=== PATIENT | male | born 1990 | race Two or more races ===

== ENCOUNTER 2021-12-10 08:12 | Inpatient (IN) ==
[2021-12-10] MEDS ORDERED: IBUPROFEN 800 MG TAB PO STA (08:29)
[2021-12-10] MEDS ORDERED: ACETAMINOPHEN 500 MG TAB PO STA (08:29)
[2021-12-10] MEDS ORDERED: SODIUM CHLORIDE 0.9% 1000ML 2,000 ML IV ONE (08:29)
--- NOTE | 2021-12-10 08:33 | Emergency Department Note ---
Impression & Plan Myocarditis, Elevated troponin, Hyponatremia ED Provider Note Name: ED HAM Age: 31 Sex: M Arrives Via: Walk-In Informant: Patient, mother ED Provider: Jose M Monaco MD Chief Complaint: Illness Impression: As per impressions above Medical Decision Making: Pleasant 31-year-old male without significant past medical history arrives for evaluation of flu/COVID-like illness over the last week. Worsening dizziness and lightheadedness. Initial EKG a bit concerning with Q waves noted though no specific ST elevation. But febrile and tachycardia on arrival was given IV fluids, Tylenol, Motrin. Initial chest x-ray unremarkable. Initial COVID test ing negative. His labs started returning with significantly elevated troponin at 4000, hyponatremia. At this point base loader was consulted emergently. Patient had an emergent echo done. Following this base loader felt it was reasonable to bring him in to this facility for monitoring and further management. While this was being done further testing was obtained such as Lyme which is negative, CRP/ESR which are both elevated, CK which was elevated patient did receive some further fluids. Patient's initial lactate and procalcitonin are unremarkable. I do not feel this is a bacterial sepsis causing this. Most likely this is consistent with a viral etiology thus we will hold on antibiotics at this time. This was the discussed with hospitalist for further management. Prior Medical Record and Triage/Nursing Notes reviewed by Me Additional history obtained from mother Differentials:Viral syndrome, otitis, pharyngitis, pneumonia, influenza, men ingitis, urinary tract infection, sepsis, bacteremia, as well as other pathologies. Vital Signs: reviewed and remarkable for fever, tachy Interventions: Saline bolus 2 L IV, Tylenol p.o., Motrin p.o. Labs:Reviewed and remarkable for elevated troponin, elevated CK, elevated ESR/CRP, hyponatremia Imagin view chest x-ray no acute findings as per radiologist EKG:Per My Interpretation: Indication Chest pain: NSR 91 bpm, qtc 430. No Ectopy. No Ischemia. No previous for comparison Cardiac/Tele Monitoring: Cardiac Monitoring: An Order was placed for continuous cardiac monitoring. The monitor shows a rate of 90 with a normal sinus rhythm. Consults:Dr Fernando [facility]. [facility] Hospitalist Plan: Disposition:Hospitalization. Condition: Good History of Present Illness:31-year-old male arrives for evaluation of illness. Patient has been ill for the last 5 days. He notes primarily body aches. His associated with diffuse chest tightness/pain, headaches, sore joints, backaches, lack of appetite, lightheadedness, dizziness with exertion, fatigue, sore throat and chills. He has not measured his temperature but does feel feverish and sweaty at times. No known sick contacts but notes he works at [employer] were people may be sick. He used Motrin yesterday with mild improvement. Exertion makes worse and rest makes better. Previously had COVID about 6 months ago. Denies any syncope, neurodeficits, shortness of breath, cough, abdominal pain, vomiting, urinary/bowel symptoms, leg swelling, rashes nor other signs or symptoms. ROS: See above HPI for pertinent positives & negatives. A total of 10 systems reviewed and were otherwise negative. Past Medical History:None Past Surgical History:Jaw surgery Family History:Healthy Social History:Works at [employer], no smoking/drug use, occasional alcohol use Home Medications:No daily medications Allergies:No known drug allergies Vitals:Blood Pressure: 111/76, Pulse 100, RR 18, T 37.9 C, O2 100% on RA Physical Exam: GENERAL: Patient is dehydrated and tired appearing and in minimal distress. Warm to touch EYES: No scleral icterus, unremarkable pupils. ENT: Mucous membranes dry, no nasal congestion. NECK: No masses appreciated, nomeningismus, trachea is midline. RESPIRATORY: No dyspnea. Clear to auscultation and equal bilaterally. No wheeze, no rhonchi. CARDIOVASCULAR: Tachy.No murmurs, rubs, gallops appreciated. GASTROINTESTINAL: Abdomen soft, non-tender, no peritonitis.Bowel sounds positi ve.No masses appreciated. BACK: No midline tenderness, no CVA tenderness EXTREMITIES: Normal motion all extremities, no cyanosis, no edema. NEUROLOGIC: Alert and oriented, no acute motor or sensory deficits, no focal weakness, cranial nerves grossly intact. SKIN: No rash, no jaundice, no diaphoresis. PSYCH: Appropriate GCS: 15 ED Course: Times/Reassessments: Does appear much more comfortable and feeling better after fluids and antipyretics. Agreeable to hospitalization. Jose M Monaco MD Past Med/Surg History Family History (Updated 12/10/21 @ 13:51 by Terrell Oropeza MD) Mother Hypertension Father Diabetes Social History Smoking Status: Never smoker Hx Alcohol Use: No Hx Substance Use: No Preferred Language: Romanian Communication Ability: Effective Lead Oracle Developer Required: No Beliefs That Will Affect Care: None Current Living Situation: Family Other Information That Helps Us Care for You: No Feels Safe at Home: Yes Assistive Devices: None Allergies Allergies Allergy/AdvReac Type Severity Reaction Status Date / Time No Known Allergies Allergy Verified 12/10/21 13:30 Results & Data (ED) Vital Signs Vital Signs - 24 hr 12/10/21 08:16 12/10/21 08:49 12/10/21 09:00 Temperature 37.9 C H Temperature Source Temporal Artery Scan Pulse Rate 100 H 88 Pulse Rate from SpO2 Sensor Respiratory Rate 18 20 Blood Pressure 111/76 Blood Pressure Mean 87 Pulse Oximetry 100 Oxygen Delivery Method Room Air Room Air Sepsis Recent Fever Within 48 Hours Yes Sepsis New/Unexplained Change in Mental Status No Sepsis Action Taken by Nursing No Action Required 12/10/21 09:43 12/10/21 10:00 12/10/21 10:30 Temperature Temperature Source Pulse Rate 92 H 96 H Pulse Rate from SpO2 Sensor 92 H 99 H Respiratory Rate 22 26 H Blood Pressure 118/86 115/85 118/84 Blood Pressure Mean 96 95 95 Pulse Oximetry 99 98 Oxygen Delivery Method Sepsis Recent Fever Within 48 Hours Sepsis New/Unexplained Change in Mental Status Sepsis Action Taken by Nursing 12/10/21 10:30 12/10/21 11:00 12/10/21 11:00 Temperature Temperature Source Pulse Rate 96 H 89 Pulse Rate from SpO2 Sensor 95 H Respiratory Rate 18 Blood Pressure 114/83 Blood Pressure Mean 93 Pulse Oximetry 99 Oxygen Delivery Method Room Air Sepsis Recent Fever Within 48 Hours Sepsis New/Unexplained Change in Mental Status Sepsis Action Taken by Nursing 12/10/21 11:30 12/10/21 11:30 12/10/21 12:00 Temperature Temperature Source Pulse Rate 90 96 H Pulse Rate from SpO2 Sensor 90 98 H Respiratory Rate 15 18 Blood Pressure 128/87 Blood Pressure Mean 100 Pulse Oximetry 98 98 Oxygen Delivery Method Room Air Room Air Sepsis Recent Fever Within 48 Hours Sepsis New/Unexplained Change in Mental Status Sepsis Action Taken by Nursing 12/10/21 12:30 12/10/21 12:30 Temperature Temperature Source Pulse Rate 90 Pulse Rate from SpO2 Sensor Respiratory Rate 17 Blood Pressure 129/87 Blood Pressure Mean 101 Pulse Oximetry Oxygen Delivery Method Sepsis Recent Fever Within 48 Hours Sepsis New/Unexplained Change in Mental Status Sepsis Action Taken by Nursing Laboratory Data Result diagrams: 12/10/21 08:45 12/10/21 18:41 Lab Results 12/10/21 12/10/21 12/10/21 Range/Units 08:45 08:45 09:00 WBC 6.33 (4.8-10.8) K/ul RBC 4.63 (4.63-6.08) M/uL Hgb 12.4 L (14.0-18.0) g/dl Hct 37.1 L (40.1-51.0) % MCV 80.1 (80.0-100.0) fL MCH 26.8 (25.0-34.0) pg MCHC 33.4 (32.0-36.0) g/dL RDW Std Deviation 39.6 (36.4-46.3) fL RDW Coeff of Kieran 13.6 (11.5-14.5) % Plt Count 188 (130-400) K/uL MPV 10.8 (9.4-12.4) fL Immature Gran % (Auto) 0.5 % Neut % (Auto) 72.2 % Lymph % (Auto) 18.3 % Charles % (Auto) 8.7 % Eos % (Auto) 0.0 % Baso % (Auto) 0.3 % Neut # (Auto) 4.57 (1.4-6.5) K/uL Lymph # (Auto) 1.16 L (1.2-3.4) K/uL Charles # (Auto) 0.55 (0.24-0.82) K/uL Eos # (Auto) 0.00 (0-0.50) K/uL Baso # (Auto) 0.02 (0-0.2) K/uL Immature Gran # (Auto) 0.03 H (0.00-0.02) K/uL ESR (0-15) mm/hr Sodium 129 L (136-145) mmol/L Potassium 3.2 L (3.5-5.1) mmol/L Chloride 96 L (98-107) mmol/L Carbon Dioxide 20 L (21-32) mmol/L Anion Gap 13 H (3-11) BUN 16 (6-23) mg/dl Creatinine 1.27 (0.6-1.4) mg/dl Est Cr Clr Drug Dosing Not Reportable Est GFR ( Amer) 85.5 ml/min Est GFR (Non-Af Amer) 73.7 ml/min BUN/Creatinine Ratio 12.6 (10-20) Glucose 132 H (70-99(Fasting)) mg/dl Lactate (0.4-2.0) mmol/L Calcium 8.5 (8.5-10.1) mg/dl Total Bilirubin 1.0 (0.2-1.0) mg/dl Direct Bilirubin 0.3 H (0-0.2) mg/dl AST 40 H (13-39) U/L ALT 16 (7-52) U/L Alkaline Phosphatase 85 (34-104) U/L Total Creatine Kinase (30-223) U/L Troponin I High Sens 4264.6 H* (0-20) pg/ml C-Reactive Protein (0-0.5) mg/dl B-Natriuretic Peptide (0-100) pg/ml Total Protein 7.5 (6.0-8.3) gm/dl Albumin 3.9 (3.4-5.0) gm/dl Procalcitonin (0-0.5) ng/ml TSH (0.300-4.500) uIu/ml Lyme Disease IgG Ab (Negative) Lyme Disease IgM Ab (Negative) SARS-CoV-2 (PCR) NEGATIVE (Negative) Influenza Type A (PCR) Negative (Neg) Influenza Type B (PCR) Negative (Neg) RSV (RT-PCR) Negative (Neg) Group A Strep (PCR) (NotDetected) 12/10/21 12/10/21 12/10/21 Range/Units 10:23 10:45 10:45 WBC (4.8-10.8) K/ul RBC (4.63-6.08) M/uL Hgb (14.0-18.0) g/dl Hct (40.1-51.0) % MCV (80.0-100.0) fL MCH (25.0-34.0) pg MCHC (32.0-36.0) g/dL RDW Std Deviation (36.4-46.3) fL RDW Coeff of Kieran (11.5-14.5) % Plt Count (130-400) K/uL MPV (9.4-12.4) fL Immature Gran % (Auto) % Neut % (Auto) % Lymph % (Auto) % Charles % (Auto) % Eos % (Auto) % Baso % (Auto) % Neut # (Auto) (1.4-6.5) K/uL Lymph # (Auto) (1.2-3.4) K/uL Charles # (Auto) (0.24-0.82) K/uL Eos # (Auto) (0-0.50) K/uL Baso # (Auto) (0-0.2) K/uL Immature Gran # (Auto) (0.00-0.02) K/uL ESR (0-15) mm/hr Sodium (136-145) mmol/L Potassium (3.5-5.1) mmol/L Chloride (98-107) mmol/L Carbon Dioxide (21-32) mmol/L Anion Gap (3-11) BUN (6-23) mg/dl Creatinine (0.6-1.4) mg/dl Est Cr Clr Drug Dosing Est GFR ( Amer) ml/min Est GFR (Non-Af Amer) ml/min BUN/Creatinine Ratio (10-20) Glucose (70-99(Fasting)) mg/dl Lactate (0.4-2.0) mmol/L Calcium (8.5-10.1) mg/dl Total Bilirubin (0.2-1.0) mg/dl Direct Bilirubin (0-0.2) mg/dl AST (13-39) U/L ALT (7-52) U/L Alkaline Phosphatase (34-104) U/L Total Creatine Kinase 1269 H (30-223) U/L Troponin I High Sens (0-20) pg/ml C-Reactive Protein (0-0.5) mg/dl B-Natriuretic Peptide (0-100) pg/ml Total Protein (6.0-8.3) gm/dl Albumin (3.4-5.0) gm/dl Procalcitonin 0.17 (0-0.5) ng/ml TSH (0.300-4.500) uIu/ml Lyme Disease IgG Ab Negative (Negative) Lyme Disease IgM Ab Negative (Negative) SARS-CoV-2 (PCR) (Negative) Influenza Type A (PCR) (Neg) Influenza Type B (PCR) (Neg) RSV (RT-PCR) (Neg) Group A Strep (PCR) NOT DETECTED (NotDetected) 12/10/21 12/10/21 12/10/21 Range/Units 10:45 10:45 10:45 WBC (4.8-10.8) K/ul RBC (4.63-6.08) M/uL Hgb (14.0-18.0) g/dl Hct (40.1-51.0) % MCV (80.0-100.0) fL MCH (25.0-34.0) pg MCHC (32.0-36.0) g/dL RDW Std Deviation (36.4-46.3) fL RDW Coeff of Kieran (11.5-14.5) % Plt Count (130-400) K/uL MPV (9.4-12.4) fL Immature Gran % (Auto) % Neut % (Auto) % Lymph % (Auto) % Charles % (Auto) % Eos % (Auto) % Baso % (Auto) % Neut # (Auto) (1.4-6.5) K/uL Lymph # (Auto) (1.2-3.4) K/uL Charles # (Auto) (0.24-0.82) K/uL Eos # (Auto) (0-0.50) K/uL Baso # (Auto) (0-0.2) K/uL Immature Gran # (Auto) (0.00-0.02) K/uL ESR 55 H (0-15) mm/hr Sodium (136-145) mmol/L Potassium (3.5-5.1) mmol/L Chloride (98-107) mmol/L Carbon Dioxide (21-32) mmol/L Anion Gap (3-11) BUN (6-23) mg/dl Creatinine (0.6-1.4) mg/dl Est Cr Clr Drug Dosing Est GFR ( Amer) ml/min Est GFR (Non-Af Amer) ml/min BUN/Creatinine Ratio (10-20) Glucose (70-99(Fasting)) mg/dl Lactate (0.4-2.0) mmol/L Calcium (8.5-10.1) mg/dl Total Bilirubin (0.2-1.0) mg/dl Direct Bilirubin (0-0.2) mg/dl AST (13-39) U/L ALT (7-52) U/L Alkaline Phosphatase (34-104) U/L Total Creatine Kinase (30-223) U/L Troponin I High Sens (0-20) pg/ml C-Reactive Protein 10.33 H (0-0.5) mg/dl B-Natriuretic Peptide (0-100) pg/ml Total Protein (6.0-8.3) gm/dl Albumin (3.4-5.0) gm/dl Procalcitonin Cancelled (0-0.5) ng/ml TSH (0.300-4.500) uIu/ml Lyme Disease IgG Ab (Negative) Lyme Disease IgM Ab (Negative) SARS-CoV-2 (PCR) (Negative) Influenza Type A (PCR) (Neg) Influenza Type B (PCR) (Neg) RSV (RT-PCR) (Neg) Group A Strep (PCR) (NotDetected) 12/10/21 12/10/21 12/10/21 Range/Units 10:51 10:51 11:25 WBC (4.8-10.8) K/ul RBC (4.63-6.08) M/uL Hgb (14.0-18.0) g/dl Hct (40.1-51.0) % MCV (80.0-100.0) fL MCH (25.0-34.0) pg MCHC (32.0-36.0) g/dL RDW Std Deviation (36.4-46.3) fL RDW Coeff of Kieran (11.5-14.5) % Plt Count (130-400) K/uL MPV (9.4-12.4) fL Immature Gran % (Auto) % Neut % (Auto) % Lymph % (Auto) % Charles % (Auto) % Eos % (Auto) % Baso % (Auto) % Neut # (Auto) (1.4-6.5) K/uL Lymph # (Auto) (1.2-3.4) K/uL Charles # (Auto) (0.24-0.82) K/uL Eos # (Auto) (0-0.50) K/uL Baso # (Auto) (0-0.2) K/uL Immature Gran # (Auto) (0.00-0.02) K/uL ESR (0-15) mm/hr Sodium (136-145) mmol/L Potassium (3.5-5.1) mmol/L Chloride (98-107) mmol/L Carbon Dioxide (21-32) mmol/L Anion Gap (3-11) BUN (6-23) mg/dl Creatinine (0.6-1.4) mg/dl Est Cr Clr Drug Dosing Est GFR ( Amer) ml/min Est GFR (Non-Af Amer) ml/min BUN/Creatinine Ratio (10-20) Glucose (70-99(Fasting)) mg/dl Lactate 0.7 (0.4-2.0) mmol/L Calcium (8.5-10.1) mg/dl Total Bilirubin (0.2-1.0) mg/dl Direct Bilirubin (0-0.2) mg/dl AST (13-39) U/L ALT (7-52) U/L Alkaline Phosphatase (34-104) U/L Total Creatine Kinase (30-223) U/L Troponin I High Sens (0-20) pg/ml C-Reactive Protein (0-0.5) mg/dl B-Natriuretic Peptide 283 H (0-100) pg/ml Total Protein (6.0-8.3) gm/dl Albumin (3.4-5.0) gm/dl Procalcitonin (0-0.5) ng/ml TSH 1.448 (0.300-4.500) uIu/ml Lyme Disease IgG Ab (Negative) Lyme Disease IgM Ab (Negative) SARS-CoV-2 (PCR) (Negative) Influenza Type A (PCR) (Neg) Influenza Type B (PCR) (Neg) RSV (RT-PCR) (Neg) Group A Strep (PCR) (NotDetected) Administered Medications Lactated Ringer's (Lr) 1,000 mls @ 80 mls/hr IV .[id number] DARRON Stop: 12/11/21 06:00 Last Admin: 12/10/21 15:56 Dose: 80 mls/hr Documented By: KTS Discontinued Medications Acetaminophen (Acetaminophen 500 Mg Tab) 1,000 mg PO NOW STA Stop: 12/10/21 08:30 Last Admin: 12/10/21 08:56 Dose: 1,000 mg Documented By: JOSE ALEJANDRO Sodium Chloride (Nss 1000ml) 2,000 mls @ 999 mls/hr IV .[id number] ONE Stop: 12/10/21 10:29 Last Infusion: 12/10/21 11:00 Dose: 0 mls/hr Documented By: MARY GRACE Admin: 12/10/21 08:59 Dose: 999 mls/hr Documented By: JOSE ALEJANDRO Ibuprofen (Ibuprofen 800 Mg Tab) 800 mg PO NOW STA Stop: 12/10/21 08:30 Last Admin: 12/10/21 08:56 Dose: 800 mg Documented By: JOSE ALEJANDRO Potassium Chloride (Potassium Chloride Crtab 20 Meq Tabcr) 40 meq PO NOW STA Stop: 12/10/21 13:14 Last Admin: 12/10/21 13:25 Dose: 40 meq Documented By: MARY GRACE Imaging Data Radiologist's Impression: Chest X-Ray 12/10/21 10:02 XR chest 1V portable HISTORY: 31 years-old Male fever, weakness, cough acute fever with cough and weakness COMPARISON: None TECHNIQUE: AP view of the chest FINDINGS: The cardiomediastinal and hilar silhouettes are within normal limits. No pneumothorax, pleural effusion, airspace consolidation or overt pulmonary edema. The bones of the chest appear grossly intact. IMPRESSION: No acute process. ACT 112: Negative or not required by law. The above report was generated using voice recognition software. It may contain grammatical, syntax or spelling errors. Electronically signed by: Roosevelt Badillo M.D. 12/10/2021 10:31 AM Discharge Plan Visit Data Chief Complaint: Chest Pain Stated Complaint: PAIN IN CHEST AND BACK, HEAD AND TEMPLES ED Provider: Jose M Monaco Discharge Problem: Myocarditis, Elevated troponin, Hyponatremia Patient Disposition: Admitted As Inpatient Discharge Instructions Interventions: ED Discharge Assessment Last Done: 12/10/21 13:32 : Myocarditis Qualifiers: Myocarditis type: infective Infective myocarditis organism: viral Chronicity: acute Qualified Code(s): I40.0 - Infective myocarditis
[2021-12-10 09:10] LABS: Basophils # (auto) 0.02 K/uL (0-0.2); Basophils % (auto) 0.3 %; Hematocrit (blood only) 37.1 % (40.1-51.0); Hemoglobin 12.4 g/dl (14.0-18.0); Immature Granulocytes # (auto) 0.03 K/uL (0.00-0.02); Immature Granulocytes % (auto) 0.5 %; Lymphocytes # (auto) 1.16 K/uL (1.2-3.4); Lymphocytes % (auto) 18.3 %; Mean Corpuscular Hemoglobin 26.8 pg (25.0-34.0); Mean Corpuscular Hgb Conc 33.4 g/dL (32.0-36.0); Mean Corpuscular Volume 80.1 fL (80.0-100.0); Mean Platelet Volume 10.8 fL (9.4-12.4); Monocytes # (auto) 0.55 K/uL (0.24-0.82); Monocytes % (auto) 8.7 %; Neutrophils # (auto) 4.57 K/uL (1.4-6.5); Neutrophils % (auto) 72.2 %; Platelet Count 188 K/uL (130-400); RDW Coefficient of Variation 13.6 % (11.5-14.5); RDW Standard Deviation 39.6 fL (36.4-46.3); Red Blood Count 4.63 M/uL (4.63-6.08); White Blood Count 6.33 K/ul (4.8-10.8)
[2021-12-10 09:36] LABS: Alanine Aminotransferase 16 U/L (7-52); Albumin Level 3.9 gm/dl (3.4-5.0); Alkaline Phosphatase 85 U/L (34-104); Anion Gap 13 (3-11); Aspartate Aminotransferase 40 U/L (13-39); BUN Creatinine Ratio 12.6 (10-20); Bilirubin Direct 0.3 mg/dl (0-0.2); Blood Urea Nitrogen 16 mg/dl (6-23); Calcium 8.5 mg/dl (8.5-10.1); Carbon Dioxide 20 mmol/L (21-32); Chloride 96 mmol/L (98-107); Est GFR (African American) 85.5 ml/min; Est GFR (Non-African American) 73.7 ml/min; Glucose 132 mg/dl (70-99(Fasting)); Potassium 3.2 mmol/L (3.5-5.1); Sodium 129 mmol/L (136-145); Total Protein 7.5 gm/dl (6.0-8.3)
[2021-12-10 09:58] LABS: Influenza A virus by PCR Negative (Neg); Influenza B virus by PCR Negative (Neg); RSV by PCR Negative (Neg); SARS CoV2 RNA(COVID-19) InHosp NEGATIVE (Negative)
[2021-12-10 10:04] LABS: Troponin I High Sensitivity 4264.6 pg/ml (0-20)
--- NOTE | 2021-12-10 10:32 | XRay Report ---
XR chest 1V portable HISTORY: 31 years-old Male fever, weakness, cough acute fever with cough and weakness COMPARISON: None TECHNIQUE: AP view of the chest FINDINGS: The cardiomediastinal and hilar silhouettes are within normal limits. No pneumothorax, pleural effusi on, airspace consolidation or overt pulmonary edema. The bones of the chest appear grossly intact. IMPRESSION: No acute process. ACT 112: Negative or not required by law. The above report was generated using voice recognition software. It may contain grammatical, syntax o r spelling errors. Electronically signed by: Roosevelt Badillo M.D. 12/10/2021 10:31 AM
--- NOTE | 2021-12-10 11:47 | Cardiology Consultation ---
Date of Consultation December 10, 2021 Assessment & Plan (1) Viral illness: (2) Elevated troponin: (3) Hyponatremia: (4) Hypokalemia: Plan 31 year old male evaluated in the ER after presenting earlier this morning with progressive symptoms suggesting viral illness with elevated high sensitivity Troponin I and a mildly abnormal EKG raising concern for pericarditis/myocarditis. Symptoms improved following administration of ibuprofen, acetaminophen, and IV fluids. No evidence of overt heart failure by history, physical examination, or chest x-ray. No arrhythmias observed thus far. Recommend admission for continuous telemetry monitoring, further observation and evaluation. Resting echocardiography obtained just prior to my evaluation with results pending interpretation. Serial cardiac biomarkers to be obtained along with inflammatory markers, blood cultures, evaluation for Lyme, thyroid testing, BNP. Further recommendations to come. Supervising Physician Co-Signing Physician Notes Supervising Physician Attestation: I have personally performed a history and physical examination on the patient. I agree with the physician culinary assistant's findings and plan as documented with the following additions. Subjective: Patient without chest discomfort at the time of my assessment in room 18 of the emergency department. A single temperature measurement has been obtained at 8:16 AM and was elevated at 37.9 C, patient still states he feels febrile. Exam: Temp Pulse Resp BP Pulse Ox O2 Del Method 37.9 C H 90 17 129/87 98 12/10/21 08:16 12/10/21 12:30 12/10/21 12:30 12/10/21 12:30 12/10/21 12:00 12/10/21 12:00 General appearance no acute distress Pulmonary clear to auscultation bilaterally no rales rhonchi or wheezing Cardiovascular regular rhythm no murmurs rubs or gallops Extremities no edema Neurologic no focal deficits Data: Lyme screen negative, group A strep not detected, SARS-CoV-2 PCR negative, influenza, RSV negative CPK 1269 units/L, high-sensitivity troponin 4264 PG per mL C-reactive protein 10.33 erythrocyte sedimentation rate 55 mm/h Echocardiogram revealed normal findings with a trace degree of pericardial fluid noted adjacent to the anterior lateral wall and the apical four-chamber view, otherwise no significant pericardial fluid, no tamponade, LVEF 55 to 60%. No significant valvular lesions. EKG has noted, performed this morning 8022 8:26 AM, normal sinus rhythm at 91 bpm, subtle J-point elevation in the high leads lead I and aVL otherwise normal ST segments. Assessment and Plan: Presentation suggestive of viral illness, possible myocarditis. No eosinophilia noted on CBC. Lymphocyte count mildly below lower limit of normal at 1.16, lower limit of normal 1.2K per UL. Patient is young without significant risk factors for atherosclerosis, and does not have current symptoms suggestive angina although an acute coronary syndrome is also a possibility, clinical presentation suggests otherwise. -Admit to telemetry, for further observation, trend troponin levels x3 sets every 6-8 hours. -Proceed with acetaminophen, ibuprofen. Potassium chloride replacement ordered. DVT prophylaxis: Consider subcutaneous Lovenox for DVT prophylaxis. I do not think systemic anticoagulation is indicated. Joel King, DO History of Present Illness Reason for Consultation: Elevated Troponin Requesting Physician: Carlos Enrique Attending Physician: To be determinted History of Present Illness Mr. Kevyn Pina is a 31 year old male who presented to the [facility] Emergency Room earlier this (12/10/2021) morning due to chest pain. Patient notes developing queasiness and dizziness starting on , December 06, 2021, five days ago. Notes malaise and fatigue, shore throat, fevers, chills, diffuse myalgias and arthralgias, loss of appetite. Notes feeling chest, back and head pressure that are worse with movement/activity. No night sweats. No rash. No known sick contacts. Patient works at [employer] on the [place] and lives with his mother and brother who he reports have not been sick recently. WBC count normal. H&H low at 12.4 and 37.1. Plt Count was normal at 188. Sodium was 129. Potassium was low at 3.2. BUN and creatinine were 16 and 1.27. High sensitivity Troponin was elevated at 4,264.6 pg/mL. EKG dated and timed December 10, 2021 at 08:26:30 revealed normal sinus rhythm at [address] elevation in the high lateral leads. Chest x-ray on admission revealed normal cardiomediastinal and hilar silhouettes with no pneumothorax, pleural effusion, airspace consolidation or overt pulmonary edema. Testing for SARS-CoV-2 (PCR) along with influenza and RSV were negative. Presenting symptoms improved following the administration of ibuprofen 800 mg, acetaminophen 1000 mg, and fluids in the ER at 8:29 AM. Patient denies prior cardiac history. No recent travel. No known sick contacts. Prior to he was active to his level of preference without difficulty. 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 No palpitations. No resting shortness of breath. No orthopnea, PND, or peripheral edema. No near syncope or true syncope. No epistaxis, hemoptysis, melena, hematochezia, or hematuria. Past Medical and Surgical History: Jaw surgery Family History: Fathers history is unknown. Longevity noted on mothers side. Mother and brother are alive and well, without cardiac issues Social History: Nonsmoker. No smokeless tobacco. No illegal drug use. Single. Lives with his mother and brother. 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 Originally from the [place]. No recent travel. Complete Review of Systems is as stated above, negative, or noncontributory. Allergies: No known drug allergies. Patient History Social History Smoking Status: Never smoker Preferred Language: Burkinan Feels Safe at Home: Yes Review of Systems Review of Systems: All systems reviewed & are unremarkable except as noted in HPI & below Physical Exam Physical Exam: Patient examined in the ER, Room A10 Laying nearly flat. General: A&Ox3. NAD. HENT: Masked. Normocephalic. Atraumatic. Eyes: PER. Conjunctiva pink, sclera clear. No JVD. No HJR. Heart: Regular at 90 bpm. No murmur. No rub. No gallop. PMI is nondisplaced. Lungs: Clear to auscultation. Abdomen: +BS. Soft. Nontender. No masses or organomegaly. Extremities: No clubbing, cyanosis, or edema. Limited neurological examination is without focal deficits. Pulses: radial=2/4, posterior tibial=2/4. Results & Data ([facility]) Vital Signs (Past 12 Hours) Vital Signs Temp Pulse Resp BP Pulse Ox O2 Del Method 12/10/21 11:00 89 12/10/21 11:00 114/83 12/10/21 10:30 96 H 18 99 Room Air 12/10/21 10:30 118/84 12/10/21 10:00 96 H 26 H 115/85 98 12/10/21 09:43 92 H 22 118/86 99 12/10/21 09:00 88 20 12/10/21 08:49 Room Air 12/10/21 08:16 37.9 C H 100 H 18 111/76 100 Room Air Laboratory Results As above. Multiple labs pending. Diagnostic Findings EKG: See above.
[2021-12-10 11:59] LABS: Procalcitonin 0.17 ng/ml (0-0.5)
[2021-12-10 12:05] LABS: Lyme Ab IgG w/WB Rflx Negative (Negative); Lyme Ab IgM w/WB Rflx Negative (Negative)
[2021-12-10] MEDS ORDERED: POTASSIUM CHLORIDE CRTAB 20 MEQ TABCR PO STA (13:13)
--- NOTE | 2021-12-10 13:58 | History & Physical Report ---
Date of Service December 10, 2021 Assessment & Plan (1) Myocarditis: (2) Pericardial effusion: (3) Hyponatremia: (4) Hypokalemia: Plan Patient is a 31-year-old male with no significant past medical history presents to the ED with complaint of dizziness for 5 days and chest pain for the last 2 days. 1) Myocarditis/Pericarditis and Pleuritis Chest pain increased with deep breathing. No history of hypertension, diabetes or smoking. Physical examination unremarkable High-sensitivity [id number], total CK- 1269. CRP and ESR elevated. EchoEF of 55 to 60%, no regional wall motion abnormality. Trace pericardial fluid. No echo evidence of cardiac tamponade. EKGnormal sinus rhythm, ST elevation in I and aVL. Lyme serology negative, COVID-19 negative. Plan; Cardiology on board; number recommend trend troponin every 6 hours. Tylenol, ibuprofen as needed. -Telemetry monitoring. EKG as needed. 2) Hyponatremia likely hypovolemic -Patient complains of dizziness when standing from sitting position [id number] Plan; Obtain serum awesome, urine awesome, urine electrolytes. Gentle IV hydration with LR at 80 cc/h. BMP every 12 hours. DVT prophylaxisLovenox CODE STATUS-full Dietheart healthy History of Present Illness Chief Complaint: Dizziness X 5 days Chest pain X 2 days Primary Care Provider: NO PCP Patient is a 31-year-old male with no significant past medical history presents to the ED with complaint of dizziness for 5 days and chest pain for the last 2 days. Since last , patient has been noticing multiple episode of dizziness which occurs when he stands up from a sitting position. Dizziness is not associated with any loss of consciousness, palpitation, weakness/numbness of any body part, tinnitus or vertigo. Patient also has chest pain substernal sin ce yesterday afternoon. Patient was helping his friend move furniture when he started to notice pain in the chest. The onset of the pain in the chest was associated with pain in his back and back of his head. The pain is more pronounced when he takes a deep breath. He denies any palpitation or shortness of breath with the chest pain. He denies headache, visual disturbances, abdominal pain or urinary symptoms. He does not have a history of recent viral infection or recent travel. Patient reports that the chest pain and dizziness have improved after receiving IV fluids and IV ibuprofen/Tylenol in the ED Patient reports history of recent dental work in November; was given prescription of doxycycline for 2 weeks. He had COVID infection in May 2021; recovered at home; did not require any hospitalization. He is unvaccinated for COVID. He denies any history of smoking, alcohol use any use of any other illicit drugs. He works at [employer]. Allergies Allergy/AdvReac Type Severity Reaction Status Date / Time No Known Allergies Allergy Verified 12/10/21 13:30 Past Med/Surg History Family History (Updated 12/10/21 @ 13:51 by Terrell Oropeza MD) Mother Hypertension Father Diabetes Social History Smoking Status: Never smoker Preferred Language: Estonian Feels Safe at Home: Yes Review of Systems Review of Systems: All systems reviewed & are unremarkable except as noted in HPI & below Physical Exam Physical Exam: Constitutional: Awake, alert oriented x3, no acute distress. Head: Normocephalic, Atraumatic Eyes: PERRL, conjunctivae normal, anicteric sclerae ENMT: external ear and nose normal, oropharynx normal Neck: trachea midline, no thyromegaly normal visual inspection Respiratory: normal respiratory effort, lungs clear to auscultation, no wheeze, rales, rhonchi. Normal insp/exp effort, no accessory muscle use Cardiovascular: RRR, no murmur, no edema Vessels: no JVD or carotid bruit Chest: normal inspection of chest Abdomen: normal bowel sounds, soft, nontender, no hepatosplenomegaly Musculoskeletal: no cyanosis or clubbing, extremities motor strength 5/5 Skin: no rashes, warm and dry normal turgor Neurologic: PERRL, EOMI, accommodation nl, no face palsy, no dysarthria CN's II- XI intact bilaterally and moves all extremities Psychiatric: A+Ox3, euthymic affect Lymphatic: no cervical or axillary lymphadenopathy : deferred Results & Data Results & Data ([facility]) Vital Signs (Past 12 Hours) Vital Signs Temp Pulse Resp BP Pulse Ox O2 Del Method 12/10/21 13:30 115/86 12/10/21 13:30 83 19 100 Room Air 12/10/21 13:00 83 13 100 Room Air 12/10/21 13:00 119/78 12/10/21 12:30 90 17 12/10/21 12:30 129/87 12/10/21 12:00 96 H 18 98 Room Air 12/10/21 11:30 90 15 98 Room Air 12/10/21 11:30 128/87 12/10/21 11:00 89 12/10/21 11:00 114/83 12/10/21 10:30 96 H 18 99 Room Air 12/10/21 10:30 118/84 12/10/21 10:00 96 H 26 H 115/85 98 12/10/21 09:43 92 H 22 118/86 99 12/10/21 09:00 88 20 12/10/21 08:49 Room Air 12/10/21 08:16 37.9 C H 100 H 18 111/76 100 Room Air Diagnostic Findings Chest X-Ray 12/10/21 10:02 XR chest 1V portable HISTORY: 31 years-old Male fever, weakness, cough acute fever with cough and weakness COMPARISON: None TECHNIQUE: AP view of the chest FINDINGS: The cardiomediastinal and hilar silhouettes are within normal limits. No pneumothorax, pleural effusion, airspace consolidation or overt pulmonary edema. The bones of the chest appear grossly intact. IMPRESSION: No acute process. ACT 112: Negative or not required by law. The above report was generated using voice recognition software. It may contain grammatical, syntax or spelling errors. Electronically signed by: Roosevelt Badillo M.D. 12/10/2021 10:31 AM COVID-19 Results Results COVID-19 Adm Lab Results: RBC 4.63 M/uL (4.63-6.08) 12/10/21 WBC 6.33 K/ul (4.8-10.8) 12/10/21 Hgb 12.4 g/dl (14.0-18.0) L 12/10/21 Hct 37.1 % (40.1-51.0) L 12/10/21 Plt Count 188 K/uL (130-400) 12/10/21 Neutrophils (%) (Auto) 72.2 % 12/10/21 Lymphocytes (%) (Auto) 18.3 % 12/10/21 Monocytes # (Auto) 0.55 K/uL (0.24-0.82) 12/10/21 Eosinophils # (Auto) 0.00 K/uL (0-0.50) 12/10/21 Immature Granulocyte % (Auto) 0.5 % 12/10/21 Neutrophils # (Auto) 4.57 K/uL (1.4-6.5) 12/10/21 Lymphocytes # (Auto) 1.16 K/uL (1.2-3.4) L 12/10/21 Monocytes # (Auto) 0.55 K/uL (0.24-0.82) 12/10/21 Eosinophils # (Auto) 0.00 K/uL (0-0.50) 12/10/21 Basophils # (Auto) 0.02 K/uL (0-0.2) 12/10/21 Immature Granulocyte # (Auto) 0.03 K/uL (0.00-0.02) H 12/10 Na 129 mmol/L (136-145) L 12/10/21 K 3.2 mmol/L (3.5-5.1) L 12/10/21 Cl 96 mmol/L (98-107) L 12/10/21 CO2 20 mmol/L (21-32) L 12/10/21 Anion Gap 13 (3-11) H 12/10/21 BUN 16 mg/dl (6-23) 12/10/21 Creatinine 1.27 mg/dl (0.6-1.4) 12/10/21 BUN/Creatinine Ratio 12.6 (10-20) 12/10/21 Glucose Level 132 mg/dl (70-99(Fasting)) H 12/10/21 Ca 8.5 mg/dl (8.5-10.1) 12/10/21 Total Bilirubin 1.0 mg/dl (0.2-1.0) 12/10/21 Direct Bilirubin 0.3 mg/dl (0-0.2) H 12/10/21 AST/SGOT 40 U/L (13-39) H 12/10/21 ALT/SGPT 16 U/L (7-52) 12/10/21 Alkaline Phosphatase 85 U/L (34-104) 12/10/21 Total Protein 7.5 gm/dl (6.0-8.3) 12/10/21 Albumin 3.9 gm/dl (3.4-5.0) 12/10/21 Total CK 1269 U/L (30-223) H 12/10/21 CRP 10.33 mg/dl (0-0.5) H 12/10/21 Procalcitonin 0.17 ng/ml (0-0.5) 12/10/21 COVID-19 PCR NEGATIVE (Negative) 12/10/21 Influenza Virus Type A (PCR) Negative (Neg) 12/10/21 Influenza Virus Type B (PCR) Negative (Neg) 12/10/21 Chest X-Ray 12/10/21 Code Status & VTE Plan VTE Prophylaxis Plan VTE Prophylaxis will be ordered: Yes
[2021-12-10] MEDS ORDERED: ACETAMINOPHEN 325 MG TAB PO PRN (14:12)
[2021-12-10] MEDS ORDERED: ONDANSETRON INJ 2 MG/ML 2 ML VIAL IV PRN (14:12)
[2021-12-10] MEDS ORDERED: IBUPROFEN 600 MG TAB PO PRN (14:12)
[2021-12-10] MEDS: LACTATED RINGER'S 1,000 ML IV SCH (15:56)
--- NOTE | 2021-12-10 18:41 | Communication Note ---
Date of Service: December 10, [address] Oropeza, pt reportedly asymptomatic , second HS troponin has trended up to 12,943 pg/ml. Repeat EKG obtained 18:17 reviewed. Unchanged with mild ST elevated limited to I and aVL. In absence of symptoms of angina, continue observation, supportive care. Repeat troponin in 6-8 hrs.
[2021-12-10 19:05] LABS: Urine Potassium 9.5 mmol/L
[2021-12-10 19:21] LABS: BUN Creatinine Ratio 13.7 (10-20); Calcium 7.9 mg/dl (8.5-10.1); Creatinine Clr Calc Pharmacy 117.8 ml/min; Est GFR (African American) 121.4 ml/min; Est GFR (Non-African American) 104.8 ml/min; Potassium 3.6 mmol/L (3.5-5.1)
[2021-12-10] MEDS: ENOXAPARIN INJ 40 MG/0.4 ML SYR SQ SCH (20:49)
[2021-12-10 21:46] LABS: Adenovirus PCR Not Detected (NotDetected); Bordetella parapertussis PCR Not Detected (NotDetected); Bordetella pertussis PCR Not Detected (NotDetected); Chlamydia pneumoniae PCR Not Detected (NotDetected); Coronavirus 229E PCR Not Detected (NotDetected); Coronavirus CoV-2 (COVID19)PCR Not Detected (NotDetected); Coronavirus HKU1 PCR Not Detected (NotDetected); Coronavirus NL63 PCR Not Detected (NotDetected); Coronavirus OC43PCR Not Detected (NotDetected); Human Metapneumovirus PCR Not Detected (NotDetected); Influenza A PCR Not Detected (NotDetected); Influenza B PCR Not Detected (NotDetected); Mycoplasma pneumoniae PCR Not Detected (NotDetected); Parainfluenza Virus 1 PCR Not Detected (NotDetected); Parainfluenza Virus 2 PCR Not Detected (NotDetected); Parainfluenza Virus 3 PCR Not Detected (NotDetected); Parainfluenza Virus 4 PCR Not Detected (NotDetected); Respiratory Syncytial VirusPCR Not Detected (NotDetected); Rhinovirus/Enterovirus PCR Not Detected (NotDetected)
[2021-12-11] MEDS: LACTATED RINGER'S 1,000 ML IV SCH (02:48)
--- NOTE | 2021-12-11 05:48 | Electrocardiogram Report ---
Test Reason : Blood Pressure : / mmHG Vent. Rate : 091 BPM Atrial Rate : 091 BPM P-R Int : 138 ms QRS Dur : 082 ms QT Int : 350 ms P-R-T Axes : 053 -06 016 degrees QTc Int : 430 ms Normal sinus rhythm Septal infarct , age undetermined Abnormal ECG No previous ECGs available Confirmed by Aram Sparks ([id number]) on 12/11/2021 5:48:03 AM Referred By: REFERRED SELF Confirmed By:Aram Sparks
--- NOTE | 2021-12-11 07:31 | Hospitalist Progress Note ---
Date of Service December 11, 2021 Assessment & Plan (1) Myocarditis: (2) Pericardial effusion: (3) Hyponatremia: (4) Hypokalemia: Plan Patient is a 31-year-old male with no significant past medical history presents to the ED with complaint of dizziness for 5 days and chest pain for the last 2 days. 1) Myocarditis/Pericarditis and Pleuritis Chest pain increased with deep breathing. No history of hypertension, diabetes or smoking. Physical examination unremarkable High-sensitivity [id number], total CK- 1269 on admission. CRP and ESR elevated. EchoEF of 55 to 60%, no regional wall motion abnormality. Trace pericardial fluid. No echo evidence of cardiac tamponade. EKGnormal sinus rhythm, ST elevation in I and aVL. Lyme serology negative, COVID-19 negative. - pt febrile - viral panel so far negative - clinically pt seems improved, currently denies any chest pain, shortness of breath or HENAO Cardiology consulted cont. ibuprofen, colchicin, Tylenol - Telemetry monitoring - plan to review echo AM to assess pericard. effusion 2) Hyponatremia likely hypovolemic -Patient complained of dizziness when standing from sitting position [id number] on admission -received IVF, currently Na 134 - cont. to closely monitor DVT prophylaxisLovenox CODE STATUS-full Dietheart healthy Admission and Anticipated Discharge Date Admission Date: December 10, 2021 Subjective Patient seen in follow-up of dizziness, chest pain, elevated troponin, hyponatremia ESR, CRP elevated Seen by cardiology on admission, started on Tylenol, ibuprofen, colchicin Currently laying in bed, in NAD Reports feeling improved This AM had HENAO and some L sided chest pressure, now resolved Febrile Reports that when he's walking to the bathroom, he has no issues, no dizziness, or shortness of breath Feels comfortable right now, smiling Denies any sick contacts but works in [employer] Review of Systems Review of Systems: All systems reviewed & are unremarkable except as noted in Subjective Physical Exam Physical Exam: Constitutional: Awake, alert oriented x3, no acute distress. Head: Normocephalic, Atraumatic Eyes: PERRL, EOMI, conjunctivae normal, anicteric sclerae ENMT: external ear and nose normal, oropharynx normal Neck: normal visual inspection Respiratory: normal respiratory effort, lungs clear to auscultation, no wheeze, rales, rhonchi. Cardiovascular: RRR, no murmur, no edema Vessels: no JVD Chest: normal inspection of chest Abdomen: normal bowel sounds, soft, nontender Musculoskeletal:extremities motor strength 5/5 Skin: no rashes, warm and dry normal turgor Neurologic: PERRL, EOMI, no face palsy, no dysarthria, moves all extremities Psychiatric: A+Ox3, euthymic affect Results & Data Results & Data ([facility]) Vital Signs (Past 12 Hours) Vital Signs Temp Pulse Resp BP Pulse Ox O2 Del Method 12/11/21 02:47 36.5 C 75 18 116/76 99 Room Air 12/10/21 23:23 36.9 C 70 18 116/79 95 Room Air 12/10/21 19:46 36.5 C 79 18 112/77 99 Laboratory Results 12/11/21 12/10/21 12/10/21 Range/Units 02:04 20:33 18:41 WBC (4.8-10.8) K/ul RBC (4.63-6.08) M/uL Hgb (14.0-18.0) g/dl Hct (40.1-51.0) % MCV (80.0-100.0) fL MCH (25.0-34.0) pg MCHC (32.0-36.0) g/dL RDW Std Deviation (36.4-46.3) fL RDW Coeff of Kieran (11.5-14.5) % Plt Count (130-400) K/uL MPV (9.4-12.4) fL Immature Gran % (Auto) % Neut % (Auto) % Lymph % (Auto) % Latimer % (Auto) % Eos % (Auto) % Baso % (Auto) % Neut # (Auto) (1.4-6.5) K/uL Lymph # (Auto) (1.2-3.4) K/uL Latimer # (Auto) (0.24-0.82) K/uL Eos # (Auto) (0-0.50) K/uL Baso # (Auto) (0-0.2) K/uL Immature Gran # (Auto) (0.00-0.02) K/uL ESR (0-15) mm/hr Sodium (136-145) mmol/L Potassium (3.5-5.1) mmol/L Chloride (98-107) mmol/L Carbon Dioxide (21-32) mmol/L Anion Gap (3-11) BUN (6-23) mg/dl Creatinine (0.6-1.4) mg/dl Est Cr Clr Drug Dosing Est GFR ( Amer) ml/min Est GFR (Non-Af Amer) ml/min BUN/Creatinine Ratio (10-20) Glucose (70-99(Fasting)) mg/dl Osmolality (280-300) mOsm/kg Lactate (0.4-2.0) mmol/L Calcium (8.5-10.1) mg/dl Total Bilirubin (0.2-1.0) mg/dl Direct Bilirubin (0-0.2) mg/dl AST (13-39) U/L ALT (7-52) U/L Alkaline Phosphatase (34-104) U/L Total Creatine Kinase (30-223) U/L Troponin I High Sens 5394.1 H* D 7603.2 H* D (0-20) pg/ml C-Reactive Protein (0-0.5) mg/dl B-Natriuretic Peptide (0-100) pg/ml Total Protein (6.0-8.3) gm/dl Albumin (3.4-5.0) gm/dl Procalcitonin (0-0.5) ng/ml TSH (0.300-4.500) uIu/ml Urine Osmolality (500-800) mOsm/kg Urine Sodium mmol/L Urine Potassium mmol/L Urine Chloride mmol/L Adenovirus (PCR) Not Detected (NotDetected) B. pertussis DNA (PCR) Not Detected (NotDetected) B.parapertussis DNA PCR Not Detected (NotDetected) Lyme Disease IgG Ab (Negative) Lyme Disease IgM Ab (Negative) C. pneumoniae DNA (PCR) Not Detected (NotDetected) Coronavirus OC43 (PCR) Not Detected (NotDetected) Coronavirus HKU1 (PCR) Not Detected (NotDetected) Coronavirus 229E (PCR) Not Detected (NotDetected) SARS-CoV-2 (PCR) Not Detected (Negative) Coronavirus NL63 (PCR) Not Detected (NotDetected) Human Metapneumovir PCR Not Detected (NotDetected) Influenza Type A (PCR) Not Detected (Neg) Influenza Type B (PCR) Not Detected (Neg) M. pneumoniae (PCR) Not Detected (NotDetected) Parainfluenza 1 (PCR) Not Detected (NotDetected) Parainfluenza 2 (PCR) Not Detected (NotDetected) Parainfluenza 3 (PCR) Not Detected (NotDetected) Parainfluenza 4 (PCR) Not Detected (NotDetected) RSV (RT-PCR) (Neg) RSV (PCR) Not Detected (NotDetected) Entero/Rhino (PCR) Not Detected (NotDetected) Group A Strep (PCR) (NotDetected) 12/10/21 12/10/21 12/10/21 Range/Units 18:41 17:40 17:40 WBC (4.8-10.8) K/ul RBC (4.63-6.08) M/uL Hgb (14.0-18.0) g/dl Hct (40.1-51.0) % MCV (80.0-100.0) fL MCH (25.0-34.0) pg MCHC (32.0-36.0) g/dL RDW Std Deviation (36.4-46.3) fL RDW Coeff of Kieran (11.5-14.5) % Plt Count (130-400) K/uL MPV (9.4-12.4) fL Immature Gran % (Auto) % Neut % (Auto) % Lymph % (Auto) % Latimer % (Auto) % Eos % (Auto) % Baso % (Auto) % Neut # (Auto) (1.4-6.5) K/uL Lymph # (Auto) (1.2-3.4) K/uL Latimer # (Auto) (0.24-0.82) K/uL Eos # (Auto) (0-0.50) K/uL Baso # (Auto) (0-0.2) K/uL Immature Gran # (Auto) (0.00-0.02) K/uL ESR (0-15) mm/hr Sodium 134 L (136-145) mmol/L Potassium 3.6 (3.5-5.1) mmol/L Chloride 104 (98-107) mmol/L Carbon Dioxide 24 (21-32) mmol/L Anion Gap 6 (3-11) BUN 13 (6-23) mg/dl Creatinine 0.95 D (0.6-1.4) mg/dl Est Cr Clr Drug Dosing 117.8 Est GFR ( Amer) 121.4 ml/min Est GFR (Non-Af Amer) 104.8 ml/min BUN/Creatinine Ratio 13.7 (10-20) Glucose 106 H (70-99(Fasting)) mg/dl Osmolality (280-300) mOsm/kg Lactate (0.4-2.0) mmol/L Calcium 7.9 L (8.5-10.1) mg/dl Total Bilirubin (0.2-1.0) mg/dl Direct Bilirubin (0-0.2) mg/dl AST (13-39) U/L ALT (7-52) U/L Alkaline Phosphatase (34-104) U/L Total Creatine Kinase (30-223) U/L Troponin I High Sens (0-20) pg/ml C-Reactive Protein (0-0.5) mg/dl B-Natriuretic Peptide (0-100) pg/ml Total Protein (6.0-8.3) gm/dl Albumin (3.4-5.0) gm/dl Procalcitonin (0-0.5) ng/ml TSH (0.300-4.500) uIu/ml Urine Osmolality 259 L (500-800) mOsm/kg Urine Sodium 41 mmol/L Urine Potassium 9.5 mmol/L Urine Chloride 38 mmol/L Adenovirus (PCR) (NotDetected) B. pertussis DNA (PCR) (NotDetected) B.parapertussis DNA PCR (NotDetected) Lyme Disease IgG Ab (Negative) Lyme Disease IgM Ab (Negative) C. pneumoniae DNA (PCR) (NotDetected) Coronavirus OC43 (PCR) (NotDetected) Coronavirus HKU1 (PCR) (NotDetected) Coronavirus 229E (PCR) (NotDetected) SARS-CoV-2 (PCR) (Negative) Coronavirus NL63 (PCR) (NotDetected) Human Metapneumovir PCR (NotDetected) Influenza Type A (PCR) (Neg) Influenza Type B (PCR) (Neg) M. pneumoniae (PCR) (NotDetected) Parainfluenza 1 (PCR) (NotDetected) Parainfluenza 2 (PCR) (NotDetected) Parainfluenza 3 (PCR) (NotDetected) Parainfluenza 4 (PCR) (NotDetected) RSV (RT-PCR) (Neg) RSV (PCR) (NotDetected) Entero/Rhino (PCR) (NotDetected) Group A Strep (PCR) (NotDetected) 12/10/21 12/10/21 12/10/21 Range/Units 14:37 14:37 11:25 WBC (4.8-10.8) K/ul RBC (4.63-6.08) M/uL Hgb (14.0-18.0) g/dl Hct (40.1-51.0) % MCV (80.0-100.0) fL MCH (25.0-34.0) pg MCHC (32.0-36.0) g/dL RDW Std Deviation (36.4-46.3) fL RDW Coeff of Kieran (11.5-14.5) % Plt Count (130-400) K/uL MPV (9.4-12.4) fL Immature Gran % (Auto) % Neut % (Auto) % Lymph % (Auto) % Latimer % (Auto) % Eos % (Auto) % Baso % (Auto) % Neut # (Auto) (1.4-6.5) K/uL Lymph # (Auto) (1.2-3.4) K/uL Latimer # (Auto) (0.24-0.82) K/uL Eos # (Auto) (0-0.50) K/uL Baso # (Auto) (0-0.2) K/uL Immature Gran # (Auto) (0.00-0.02) K/uL ESR (0-15) mm/hr Sodium (136-145) mmol/L Potassium (3.5-5.1) mmol/L Chloride (98-107) mmol/L Carbon Dioxide (21-32) mmol/L Anion Gap (3-11) BUN (6-23) mg/dl Creatinine (0.6-1.4) mg/dl Est Cr Clr Drug Dosing Est GFR ( Amer) ml/min Est GFR (Non-Af Amer) ml/min BUN/Creatinine Ratio (10-20) Glucose (70-99(Fasting)) mg/dl Osmolality 280 (280-300) mOsm/kg Lactate (0.4-2.0) mmol/L Calcium (8.5-10.1) mg/dl Total Bilirubin (0.2-1.0) mg/dl Direct Bilirubin (0-0.2) mg/dl AST (13-39) U/L ALT (7-52) U/L Alkaline Phosphatase (34-104) U/L Total Creatine Kinase (30-223) U/L Troponin I High Sens 15031.9 H* D (0-20) pg/ml C-Reactive Protein (0-0.5) mg/dl B-Natriuretic Peptide 283 H (0-100) pg/ml Total Protein (6.0-8.3) gm/dl Albumin (3.4-5.0) gm/dl Procalcitonin (0-0.5) ng/ml TSH (0.300-4.500) uIu/ml Urine Osmolality (500-800) mOsm/kg Urine Sodium mmol/L Urine Potassium mmol/L Urine Chloride mmol/L Adenovirus (PCR) (NotDetected) B. pertussis DNA (PCR) (NotDetected) B.parapertussis DNA PCR (NotDetected) Lyme Disease IgG Ab (Negative) Lyme Disease IgM Ab (Negative) C. pneumoniae DNA (PCR) (NotDetected) Coronavirus OC43 (PCR) (NotDetected) Coronavirus HKU1 (PCR) (NotDetected) Coronavirus 229E (PCR) (NotDetected) SARS-CoV-2 (PCR) (Negative) Coronavirus NL63 (PCR) (NotDetected) Human Metapneumovir PCR (NotDetected) Influenza Type A (PCR) (Neg) Influenza Type B (PCR) (Neg) M. pneumoniae (PCR) (NotDetected) Parainfluenza 1 (PCR) (NotDetected) Parainfluenza 2 (PCR) (NotDetected) Parainfluenza 3 (PCR) (NotDetected) Parainfluenza 4 (PCR) (NotDetected) RSV (RT-PCR) (Neg) RSV (PCR) (NotDetected) Entero/Rhino (PCR) (NotDetected) Group A Strep (PCR) (NotDetected) 12/10/21 12/10/21 12/10/21 Range/Units 10:51 10:51 10:45 WBC (4.8-10.8) K/ul RBC (4.63-6.08) M/uL Hgb (14.0-18.0) g/dl Hct (40.1-51.0) % MCV (80.0-100.0) fL MCH (25.0-34.0) pg MCHC (32.0-36.0) g/dL RDW Std Deviation (36.4-46.3) fL RDW Coeff of Kieran (11.5-14.5) % Plt Count (130-400) K/uL MPV (9.4-12.4) fL Immature Gran % (Auto) % Neut % (Auto) % Lymph % (Auto) % Latimer % (Auto) % Eos % (Auto) % Baso % (Auto) % Neut # (Auto) (1.4-6.5) K/uL Lymph # (Auto) (1.2-3.4) K/uL Latimer # (Auto) (0.24-0.82) K/uL Eos # (Auto) (0-0.50) K/uL Baso # (Auto) (0-0.2) K/uL Immature Gran # (Auto) (0.00-0.02) K/uL ESR (0-15) mm/hr Sodium (136-145) mmol/L Potassium (3.5-5.1) mmol/L Chloride (98-107) mmol/L Carbon Dioxide (21-32) mmol/L Anion Gap (3-11) BUN (6-23) mg/dl Creatinine (0.6-1.4) mg/dl Est Cr Clr Drug Dosing Est GFR ( Amer) ml/min Est GFR (Non-Af Amer) ml/min BUN/Creatinine Ratio (10-20) Glucose (70-99(Fasting)) mg/dl Osmolality (280-300) mOsm/kg Lactate 0.7 (0.4-2.0) mmol/L Calcium (8.5-10.1) mg/dl Total Bilirubin (0.2-1.0) mg/dl Direct Bilirubin (0-0.2) mg/dl AST (13-39) U/L ALT (7-52) U/L Alkaline Phosphatase (34-104) U/L Total Creatine Kinase (30-223) U/L Troponin I High Sens (0-20) pg/ml C-Reactive Protein 10.33 H (0-0.5) mg/dl B-Natriuretic Peptide (0-100) pg/ml Total Protein (6.0-8.3) gm/dl Albumin (3.4-5.0) gm/dl Procalcitonin (0-0.5) ng/ml TSH 1.448 (0.300-4.500) uIu/ml Urine Osmolality (500-800) mOsm/kg Urine Sodium mmol/L Urine Potassium mmol/L Urine Chloride mmol/L Adenovirus (PCR) (NotDetected) B. pertussis DNA (PCR) (NotDetected) B.parapertussis DNA PCR (NotDetected) Lyme Disease IgG Ab (Negative) Lyme Disease IgM Ab (Negative) C. pneumoniae DNA (PCR) (NotDetected) Coronavirus OC43 (PCR) (NotDetected) Coronavirus HKU1 (PCR) (NotDetected) Coronavirus 229E (PCR) (NotDetected) SARS-CoV-2 (PCR) (Negative) Coronavirus NL63 (PCR) (NotDetected) Human Metapneumovir PCR (NotDetected) Influenza Type A (PCR) (Neg) Influenza Type B (PCR) (Neg) M. pneumoniae (PCR) (NotDetected) Parainfluenza 1 (PCR) (NotDetected) Parainfluenza 2 (PCR) (NotDetected) Parainfluenza 3 (PCR) (NotDetected) Parainfluenza 4 (PCR) (NotDetected) RSV (RT-PCR) (Neg) RSV (PCR) (NotDetected) Entero/Rhino (PCR) (NotDetected) Group A Strep (PCR) (NotDetected) 12/10/21 12/10/21 12/10/21 Range/Units 10:45 10:45 10:45 WBC (4.8-10.8) K/ul RBC (4.63-6.08) M/uL Hgb (14.0-18.0) g/dl Hct (40.1-51.0) % MCV (80.0-100.0) fL MCH (25.0-34.0) pg MCHC (32.0-36.0) g/dL RDW Std Deviation (36.4-46.3) fL RDW Coeff of Kieran (11.5-14.5) % Plt Count (130-400) K/uL MPV (9.4-12.4) fL Immature Gran % (Auto) % Neut % (Auto) % Lymph % (Auto) % Latimer % (Auto) % Eos % (Auto) % Baso % (Auto) % Neut # (Auto) (1.4-6.5) K/uL Lymph # (Auto) (1.2-3.4) K/uL Latimer # (Auto) (0.24-0.82) K/uL Eos # (Auto) (0-0.50) K/uL Baso # (Auto) (0-0.2) K/uL Immature Gran # (Auto) (0.00-0.02) K/uL ESR 55 H (0-15) mm/hr Sodium (136-145) mmol/L Potassium (3.5-5.1) mmol/L Chloride (98-107) mmol/L Carbon Dioxide (21-32) mmol/L Anion Gap (3-11) BUN (6-23) mg/dl Creatinine (0.6-1.4) mg/dl Est Cr Clr Drug Dosing Est GFR ( Amer) ml/min Est GFR (Non-Af Amer) ml/min BUN/Creatinine Ratio (10-20) Glucose (70-99(Fasting)) mg/dl Osmolality (280-300) mOsm/kg Lactate (0.4-2.0) mmol/L Calcium (8.5-10.1) mg/dl Total Bilirubin (0.2-1.0) mg/dl Direct Bilirubin (0-0.2) mg/dl AST (13-39) U/L ALT (7-52) U/L Alkaline Phosphatase (34-104) U/L Total Creatine Kinase (30-223) U/L Troponin I High Sens (0-20) pg/ml C-Reactive Protein (0-0.5) mg/dl B-Natriuretic Peptide (0-100) pg/ml Total Protein (6.0-8.3) gm/dl Albumin (3.4-5.0) gm/dl Procalcitonin Cancelled 0.17 (0-0.5) ng/ml TSH (0.300-4.500) uIu/ml Urine Osmolality (500-800) mOsm/kg Urine Sodium mmol/L Urine Potassium mmol/L Urine Chloride mmol/L Adenovirus (PCR) (NotDetected) B. pertussis DNA (PCR) (NotDetected) B.parapertussis DNA PCR (NotDetected) Lyme Disease IgG Ab Negative (Negative) Lyme Disease IgM Ab Negative (Negative) C. pneumoniae DNA (PCR) (NotDetected) Coronavirus OC43 (PCR) (NotDetected) Coronavirus HKU1 (PCR) (NotDetected) Coronavirus 229E (PCR) (NotDetected) SARS-CoV-2 (PCR) (Negative) Coronavirus NL63 (PCR) (NotDetected) Human Metapneumovir PCR (NotDetected) Influenza Type A (PCR) (Neg) Influenza Type B (PCR) (Neg) M. pneumoniae (PCR) (NotDetected) Parainfluenza 1 (PCR) (NotDetected) Parainfluenza 2 (PCR) (NotDetected) Parainfluenza 3 (PCR) (NotDetected) Parainfluenza 4 (PCR) (NotDetected) RSV (RT-PCR) (Neg) RSV (PCR) (NotDetected) Entero/Rhino (PCR) (NotDetected) Group A Strep (PCR) (NotDetected) 12/10/21 12/10/21 12/10/21 Range/Units 10:45 10:23 09:00 WBC (4.8-10.8) K/ul RBC (4.63-6.08) M/uL Hgb (14.0-18.0) g/dl Hct (40.1-51.0) % MCV (80.0-100.0) fL MCH (25.0-34.0) pg MCHC (32.0-36.0) g/dL RDW Std Deviation (36.4-46.3) fL RDW Coeff of Kieran (11.5-14.5) % Plt Count (130-400) K/uL MPV (9.4-12.4) fL Immature Gran % (Auto) % Neut % (Auto) % Lymph % (Auto) % Latimer % (Auto) % Eos % (Auto) % Baso % (Auto) % Neut # (Auto) (1.4-6.5) K/uL Lymph # (Auto) (1.2-3.4) K/uL Latimer # (Auto) (0.24-0.82) K/uL Eos # (Auto) (0-0.50) K/uL Baso # (Auto) (0-0.2) K/uL Immature Gran # (Auto) (0.00-0.02) K/uL ESR (0-15) mm/hr Sodium (136-145) mmol/L Potassium (3.5-5.1) mmol/L Chloride (98-107) mmol/L Carbon Dioxide (21-32) mmol/L Anion Gap (3-11) BUN (6-23) mg/dl Creatinine (0.6-1.4) mg/dl Est Cr Clr Drug Dosing Est GFR ( Amer) ml/min Est GFR (Non-Af Amer) ml/min BUN/Creatinine Ratio (10-20) Glucose (70-99(Fasting)) mg/dl Osmolality (280-300) mOsm/kg Lactate (0.4-2.0) mmol/L Calcium (8.5-10.1) mg/dl Total Bilirubin (0.2-1.0) mg/dl Direct Bilirubin (0-0.2) mg/dl AST (13-39) U/L ALT (7-52) U/L Alkaline Phosphatase (34-104) U/L Total Creatine Kinase 1269 H (30-223) U/L Troponin I High Sens (0-20) pg/ml C-Reactive Protein (0-0.5) mg/dl B-Natriuretic Peptide (0-100) pg/ml Total Protein (6.0-8.3) gm/dl Albumin (3.4-5.0) gm/dl Procalcitonin (0-0.5) ng/ml TSH (0.300-4.500) uIu/ml Urine Osmolality (500-800) mOsm/kg Urine Sodium mmol/L Urine Potassium mmol/L Urine Chloride mmol/L Adenovirus (PCR) (NotDetected) B. pertussis DNA (PCR) (NotDetected) B.parapertussis DNA PCR (NotDetected) Lyme Disease IgG Ab (Negative) Lyme Disease IgM Ab (Negative) C. pneumoniae DNA (PCR) (NotDetected) Coronavirus OC43 (PCR) (NotDetected) Coronavirus HKU1 (PCR) (NotDetected) Coronavirus 229E (PCR) (NotDetected) SARS-CoV-2 (PCR) NEGATIVE (Negative) Coronavirus NL63 (PCR) (NotDetected) Human Metapneumovir PCR (NotDetected) Influenza Type A (PCR) Negative (Neg) Influenza Type B (PCR) Negative (Neg) M. pneumoniae (PCR) (NotDetected) Parainfluenza 1 (PCR) (NotDetected) Parainfluenza 2 (PCR) (NotDetected) Parainfluenza 3 (PCR) (NotDetected) Parainfluenza 4 (PCR) (NotDetected) RSV (RT-PCR) Negative (Neg) RSV (PCR) (NotDetected) Entero/Rhino (PCR) (NotDetected) Group A Strep (PCR) NOT DETECTED (NotDetected) 12/10/21 12/10/21 Range/Units 08:45 08:45 WBC 6.33 (4.8-10.8) K/ul RBC 4.63 (4.63-6.08) M/uL Hgb 12.4 L (14.0-18.0) g/dl Hct 37.1 L (40.1-51.0) % MCV 80.1 (80.0-100.0) fL MCH 26.8 (25.0-34.0) pg MCHC 33.4 (32.0-36.0) g/dL RDW Std Deviation 39.6 (36.4-46.3) fL RDW Coeff of Kieran 13.6 (11.5-14.5) % Plt Count 188 (130-400) K/uL MPV 10.8 (9.4-12.4) fL Immature Gran % (Auto) 0.5 % Neut % (Auto) 72.2 % Lymph % (Auto) 18.3 % Latimer % (Auto) 8.7 % Eos % (Auto) 0.0 % Baso % (Auto) 0.3 % Neut # (Auto) 4.57 (1.4-6.5) K/uL Lymph # (Auto) 1.16 L (1.2-3.4) K/uL Latimer # (Auto) 0.55 (0.24-0.82) K/uL Eos # (Auto) 0.00 (0-0.50) K/uL Baso # (Auto) 0.02 (0-0.2) K/uL Immature Gran # (Auto) 0.03 H (0.00-0.02) K/uL ESR (0-15) mm/hr Sodium 129 L (136-145) mmol/L Potassium 3.2 L (3.5-5.1) mmol/L Chloride 96 L (98-107) mmol/L Carbon Dioxide 20 L (21-32) mmol/L Anion Gap 13 H (3-11) BUN 16 (6-23) mg/dl Creatinine 1.27 (0.6-1.4) mg/dl Est Cr Clr Drug Dosing Not Reportable Est GFR ( Amer) 85.5 ml/min Est GFR (Non-Af Amer) 73.7 ml/min BUN/Creatinine Ratio 12.6 (10-20) Glucose 132 H (70-99(Fasting)) mg/dl Osmolality (280-300) mOsm/kg Lactate (0.4-2.0) mmol/L Calcium 8.5 (8.5-10.1) mg/dl Total Bilirubin 1.0 (0.2-1.0) mg/dl Direct Bilirubin 0.3 H (0-0.2) mg/dl AST 40 H (13-39) U/L ALT 16 (7-52) U/L Alkaline Phosphatase 85 (34-104) U/L Total Creatine Kinase (30-223) U/L Troponin I High Sens 4264.6 H* (0-20) pg/ml C-Reactive Protein (0-0.5) mg/dl B-Natriuretic Peptide (0-100) pg/ml Total Protein 7.5 (6.0-8.3) gm/dl Albumin 3.9 (3.4-5.0) gm/dl Procalcitonin (0-0.5) ng/ml TSH (0.300-4.500) uIu/ml Urine Osmolality (500-800) mOsm/kg Urine Sodium mmol/L Urine Potassium mmol/L Urine Chloride mmol/L Adenovirus (PCR) (NotDetected) B. pertussis DNA (PCR) (NotDetected) B.parapertussis DNA PCR (NotDetected) Lyme Disease IgG Ab (Negative) Lyme Disease IgM Ab (Negative) C. pneumoniae DNA (PCR) (NotDetected) Coronavirus OC43 (PCR) (NotDetected) Coronavirus HKU1 (PCR) (NotDetected) Coronavirus 229E (PCR) (NotDetected) SARS-CoV-2 (PCR) (Negative) Coronavirus NL63 (PCR) (NotDetected) Human Metapneumovir PCR (NotDetected) Influenza Type A (PCR) (Neg) Influenza Type B (PCR) (Neg) M. pneumoniae (PCR) (NotDetected) Parainfluenza 1 (PCR) (NotDetected) Parainfluenza 2 (PCR) (NotDetected) Parainfluenza 3 (PCR) (NotDetected) Parainfluenza 4 (PCR) (NotDetected) RSV (RT-PCR) (Neg) RSV (PCR) (NotDetected) Entero/Rhino (PCR) (NotDetected) Group A Strep (PCR) (NotDetected) Medications Administered Current Inpatient Medications Acetaminophen (Acetaminophen 325 Mg Tab) 650 mg PO Q4H PRN PRN Reason: Pain or Fever Stop: 01/09/22 14:11 Enoxaparin Sodium (Enoxaparin Inj 40 Mg/0.4 Ml Syr) 40 mg SQ Q24H DARRON Stop: 01/09/22 20:59 Last Admin: 12/10/21 20:49 Dose: 40 mg Ibuprofen (Ibuprofen 600 Mg Tab) 600 mg PO Q6H PRN PRN Reason: Pain Stop: 01/09/22 14:11 Ondansetron HCl (Ondansetron Inj 2 Mg/Ml 2 Ml Vial) 4 mg IV Q6H PRN PRN Reason: Nausea Stop: 01/09/22 14:11 (1) Myocarditis Chronicity: acute Infective myocarditis organism: viral Myocarditis type: infective Qualified Code(s): I40.0 - Infective myocarditis
--- NOTE | 2021-12-11 08:45 | Cardiology Progress Note ---
Date of Service December 11, 2021 Assessment & Plan (1) Viral illness: (2) Elevated troponin: (3) Hyponatremia: (4) Hypokalemia: Plan 31 year old male with a probable recent viral illness, now with suspected associated myopericarditis (pleuritic/positional chest pain, ST segment elevated (not diffuse), trace pericardial effusion, elevated high sensitivity Troponin I, preserved left ventricular systolic function). No heart failure or arrhythmias. Recommendations: EKG and laboratory work today Cautious short tapering course of ibuprofen plus colchicine plus PPI. Limited echo in AM to reassess LV function and the pericardial effusion. Maintain telemetry Admission and Anticipated Discharge Date Admission Date: December 10, 2021 Supervising Physician Co-Signing Physician Notes Supervising Physician Attestation: I have personally performed a history and physical examination on the patient. I agree with the physician assistant refinery operator's findings and plan as documented with the following additions. Subjective: Patient with recurrent fever this morning, 37.8 C as measured at 732. States that he initially did well overnight, but in the exhibit electrician hours this morning he had a headache, also felt some shortness of breath and left-sided discomfort in his chest that was notable with deep inspiration. Currently, he is feeling much improved. Telemetry reveals sinus rhythm and sinus tachycardia with range of 90 to 100 bpm. Exam: Vitals as noted Cardiovascular regular rhythm, elevated heart rate, no murmurs rubs or gallops, no edema Data: EKG performed improved this morning 12/11/[address] segment elevation limited to the high lateral leads I and aVL, improved to a subtle degree compared to last evening. Cardiac enzymes as noted. Assessment and Plan: Viral illness -Lyme screen negative, streptococcal screen negative, blood cultures negative thus far -Presentation suggestive of myopericarditis rather than an acute coronary syndrome Proceed with trial of ughnuy-[id number] ibuprofen colchicine. Acetaminophen x1 also ordered for fever this morning. Diagnostics: Repeat echo 12/09/2021 Monitor patient on telemetry Joel King DO Subjective Patient seen and examined. Chart, medications, and telemetry reviewed. [place] well most of the day yesterday and through the night. + Fever again this AM. This morning, when laying back, he noted a right sided throbbing headache, slight cough, discomfort in the left lower anterior chest with inspiration. No tachypalpitations. No edema. No dizziness, near syncope, sy ncope. No chills. No sweats. Telemetry reviewed, revealing sinus in the 80's and 90's. High sensitivity Troponin I 4,264.6 -> 12,942.9 -> 7,603.2 -> 5,394.1 December 10, 2021 TTE Interpretation Summary ([facility], Dr. King): Normal LV wall thickness. Normal LV systolic function. EF 55-60%. No regional WMA's. Mild MR. Trace amount of pericardial fluid adjacent to the anterolateral wall on the api peter 4 chamber view. No echocardiographic indications of cardiac tamponade. Review of Systems Review of Systems: Chronic difficulty with nearsightedness; notes being in need of glasses for a number of years. Complete Review of Systems is as stated above, negative, or noncontributory. Physical Exam Physical Exam: General: A&Ox3. NAD. HENT: Normocephalic. Atraumatic. Eyes: PER. Conjunctiva pink, sclera clear. No JVD. No HJR. Heart: Regular at 86 bpm. No rub. No murmur. No gallop. PMI is nondisplaced. Lungs: Clear to auscultation. Abdomen: +BS. Soft. Nontender. No masses or organomegaly. Extremities: No clubbing, cyanosis, or edema. Limited neurological examination is without focal deficits. Pulses: radial=2/4, posterior tibial=2/4. Results & Data ([facility]) Vital Signs (Past 12 Hours) Vital Signs Temp Pulse Resp BP Pulse Ox O2 Del Method 12/11/21 07:32 37.8 C H 96 H 20 115/75 100 Room Air 12/11/21 02:47 36.5 C 75 18 116/76 99 Room Air 12/10/21 23:23 36.9 C 70 18 116/79 95 Room Air Laboratory Results Cardiac Enzymes 12/10/21 12/10/21 12/10/21 Range/Units 08:45 11:25 14:37 Troponin I High Sens 4264.6 H* 27704.9 H* D (0-20) pg/ml B-Natriuretic Peptide 283 H (0-100) pg/ml 12/10/21 12/11/21 Range/Units 18:41 02:04 Troponin I High Sens 7603.2 H* D 5394.1 H* D (0-20) pg/ml B-Natriuretic Peptide (0-100) pg/ml Coagulation 12/10/21 Range/Units 11:25 B-Natriuretic Peptide 283 H (0-100) pg/ml CBC 12/11/21 Range/Units 09:36 WBC 3.93 L (4.8-10.8) K/ul RBC 4.65 (4.63-6.08) M/uL Hgb 12.3 L (14.0-18.0) g/dl Hct 37.6 L (40.1-51.0) % Plt Count 186 (130-400) K/uL Neut # (Auto) 2.91 (1.4-6.5) K/uL Lymph # (Auto) 0.68 L (1.2-3.4) K/uL [place] # (Auto) 0.32 (0.24-0.82) K/uL Eos # (Auto) 0.00 (0-0.50) K/uL Baso # (Auto) 0.01 (0-0.2) K/uL Comprehensive Metabolic Panel 12/10/21 Range/Units 18:41 Sodium 134 L (136-145) mmol/L Potassium 3.6 (3.5-5.1) mmol/L Chloride 104 (98-107) mmol/L Carbon Dioxide 24 (21-32) mmol/L BUN 13 (6-23) mg/dl Creatinine 0.95 D (0.6-1.4) mg/dl Glucose 106 H (70-99(Fasting)) mg/dl Calcium 7.9 L (8.5-10.1) mg/dl
[2021-12-11] MEDS ORDERED: ACETAMINOPHEN 500 MG TAB PO ONE (09:55)
[2021-12-11 09:58] LABS: Basophils # (auto) 0.01 K/uL (0-0.2); Basophils % (auto) 0.3 %; Hematocrit (blood only) 37.6 % (40.1-51.0); Hemoglobin 12.3 g/dl (14.0-18.0); Immature Granulocytes # (auto) 0.01 K/uL (0.00-0.02); Immature Granulocytes % (auto) 0.3 %; Lymphocytes # (auto) 0.68 K/uL (1.2-3.4); Lymphocytes % (auto) 17.3 %; Mean Corpuscular Hemoglobin 26.5 pg (25.0-34.0); Mean Corpuscular Hgb Conc 32.7 g/dL (32.0-36.0); Mean Corpuscular Volume 80.9 fL (80.0-100.0); Mean Platelet Volume 10.8 fL (9.4-12.4); Monocytes # (auto) 0.32 K/uL (0.24-0.82); Monocytes % (auto) 8.1 %; Neutrophils # (auto) 2.91 K/uL (1.4-6.5); Platelet Count 186 K/uL (130-400); RDW Coefficient of Variation 13.7 % (11.5-14.5); RDW Standard Deviation 40.4 fL (36.4-46.3); Red Blood Count 4.65 M/uL (4.63-6.08); White Blood Count 3.93 K/ul (4.8-10.8)
[2021-12-11] MEDS: COLCHICINE 0.6 MG TAB PO SCH ×2 (10:00→19:51)
[2021-12-11] MEDS: PANTOprazole 40 MG TAB PO SCH (10:00)
[2021-12-11] MEDS: IBUPROFEN 600 MG TAB PO SCH ×2 (10:01→16:52)
[2021-12-11 11:10] LABS: Albumin Globulin Ratio 1.1 (0.9-2); Albumin Level 3.7 gm/dl (3.4-5.0); BUN Creatinine Ratio 11.6 (10-20); Bilirubin,Total 0.8 mg/dl (0.2-1.0); Calcium 8.4 mg/dl (8.5-10.1); Creatinine Clr Calc Pharmacy 117.8 ml/min; Est GFR (African American) 121.4 ml/min; Est GFR (Non-African American) 104.8 ml/min; Globulin 3.3 gm/dl (2.5-4.0); Potassium 3.5 mmol/L (3.5-5.1)
[2021-12-11] MEDS ORDERED: POTASSIUM CHLORIDE CRTAB 20 MEQ TABCR PO ONE (16:45)
[2021-12-11] MEDS: ENOXAPARIN INJ 40 MG/0.4 ML SYR SQ SCH (19:51)
[2021-12-12] MEDS: IBUPROFEN 600 MG TAB PO SCH ×2 (00:18→07:57)
--- NOTE | 2021-12-12 05:42 | Electrocardiogram Report ---
Test Reason : Blood Pressure : / mmHG Vent. Rate : 081 BPM Atrial Rate : 081 BPM P-R Int : 146 ms QRS Dur : 090 ms QT Int : 386 ms P-R-T Axes : 044 -09 -07 degrees QTc Int : 448 ms Normal sinus rhythm ST elevation, consider early repolarization, pericarditis, or injury Nonspecific T wave abnormality Abnormal ECG When compared with ECG of 10-DEC-2021 08:26, No significant change Confirmed by Aram Sparks ([id number]) on 12/12/2021 5:41:49 AM Referred By: REFERRED SELF Confirmed By:Aram Sparks
--- NOTE | 2021-12-12 06:16 | Electrocardiogram Report ---
Test Reason : Blood Pressure : / mmHG Vent. Rate : 098 BPM Atrial Rate : 098 BPM P-R Int : 138 ms QRS Dur : 084 ms QT Int : 334 ms P-R-T Axes : 046 -15 010 degrees QTc Int : 426 ms Normal sinus rhythm Nonspecific T wave abnormality Abnormal ECG When compared with ECG of 10-DEC-2021 18:24, No significant change was found Confirmed by Aram Sparks ([id number]) on 12/12/2021 6:16:17 AM Referred By: REFERRED SELF Confirmed By:Aram Sparks
[2021-12-12 06:41] LABS: Hematocrit (blood only) 38.8 % (40.1-51.0); Hemoglobin 12.7 g/dl (14.0-18.0); Mean Corpuscular Hemoglobin 26.3 pg (25.0-34.0); Mean Corpuscular Hgb Conc 32.7 g/dL (32.0-36.0); Mean Corpuscular Volume 80.5 fL (80.0-100.0); Mean Platelet Volume 11.1 fL (9.4-12.4); Platelet Count 198 K/uL (130-400); RDW Coefficient of Variation 13.7 % (11.5-14.5); RDW Standard Deviation 39.6 fL (36.4-46.3); Red Blood Count 4.82 M/uL (4.63-6.08); White Blood Count 2.18 K/ul (4.8-10.8)
[2021-12-12 06:57] LABS: BUN Creatinine Ratio 11.5 (10-20); C Reactive Protein 7.36 mg/dl (0-0.5); Calcium 8.5 mg/dl (8.5-10.1); Creatinine Clr Calc Pharmacy 128.6 ml/min; Est GFR (African American) 131.4 ml/min; Est GFR (Non-African American) 113.4 ml/min; Magnesium 2.2 mg/dl (1.7-2.4); Phosphorus 3.7 mg/dl (2.5-4.9); Potassium 3.9 mmol/L (3.5-5.1)
[2021-12-12] MEDS: COLCHICINE 0.6 MG TAB PO SCH (07:57)
[2021-12-12] MEDS: PANTOprazole 40 MG TAB PO SCH (07:57)
--- NOTE | 2021-12-12 09:55 | Cardiology Progress Note ---
Date of Service December 12, 2021 Assessment & Plan (1) Viral illness: (2) Elevated troponin: (3) Hyponatremia: (4) Hypokalemia: Plan 31 year old male with a probable recent viral illness, with suspected associated myopericarditis (pleuritic/positional chest pain, ST segment elevation in I and AVL (not diffuse), small pericardial effusion, elevated high sensitivity Troponin I, preserved left ventricular systolic function). No heart failure. No arrhythmias. Recommendations: Tapering course of Ibuprofen over the next three weeks Colchicine 0.6 mg twice a day x 3 months Pantoprazole 20 mg/day for gastrointestinal protection while on ibuprofen Outpatient Cardiac MRI Off work short term, with restricted work duties until fully recovered/advised with avoidance of sports / intense exercise as well. Outpatient Cardiology follow-up being arranged at [facility]. Admission and Anticipated Discharge Date Admission Date: December 10, 2021 Supervising Physician Co-Signing Physician Notes Supervising Physician Attestation: I have personally performed a history and physical examination on the patient. I agree with the physician assistant reading teacher's findings and plan as documented with the following additions. Subjective: Pt feeling well. Afebrile overnight. Telemetry reveals SR in the 80s without arrhythmias. Exam: CV: RRR, no murmurs, no edema No pain with deep inspiration Data: echo performed today revealed stable findings. Assessment and Plan: myopericarditis -pt stable for discharge from cardiology standpoint with medications as noted. -ibuprofen 800 mg three times per day x 4 more days, 400 mg three times per day x 1 week, and 200 mg three times per day x 1 week. -Colchicine 0.6 mg BID x 3 months. -Protonix 40 mg daily while on ibuprofen. -Outpatient Cardiac MRI Off work short term, with restricted work duties until fully recovered/advised with avoidance of sports / intense exercise as well. Outpatient Cardiology follow-up being arranged at [facility]. Joel King DO Subjective Patient seen and examined. Chart, medications, and telemetry review. Patient afebrile since 12/11/2021 at 11:05 AM Patient notes feeling much better today. No headache. No cough. No chest discomfort. No dyspnea. No palpitations. No dizziness. No chills. Telemetry Sinus in the 60's and 70's. High sensitivity Troponin I 4,264.6 -> 12,942.9 -> 7,603.2 -> 5,394.1 -> 6,524.0 -> 2,928.8 pg/mL. December 10, 2021 TTE Interpretation Summary ([facility], Dr. King): Normal LV wall thickness. Normal LV systolic function. EF 55-60%. No regional WMA's. Mild MR. Trace amount of pericardial fluid adjacent to the anterolateral wall on the apical 4 chamber view. No echocardiographic indications of cardiac tamponade. December 12, 2021 TTE Interpretation Summary ([facility], Dr. King): There is a trace amount of pericardial fluid adjacent to the right ventricle, anterolateral wall, and anterior wall. THe LVEF = 55-60%. The RV is normal in size and function. EKG this morning reveals normal sinus rhythm at 78 bpm with nonspecific T wave abnormality, prolonged QTc of 490 ms, mild improvement in ST segments in I and aVL. Physical Exam Physical Exam: General: A&Ox3. NAD. HENT: Normocephalic. Atraumatic. Eyes: PER. Conjunctiva pink, sclera clear. No JVD. No HJR. Heart: Regular at 70 bpm. No rub. No murmur. No gallop. PMI is nondisplaced. Lungs: Clear to auscultation. Abdomen: +BS. Soft. Nontender. No masses or organomegaly. Extremities: No clubbing, cyanosis, or edema. Limited neurological examination is without focal deficits. Pulses: radial=2/4, posterior tibial=2/4. Results & Data ([facility]) Vital Signs (Past 12 Hours) Vital Signs Temp Pulse Pulse Resp BP Pulse Ox O2 Del Method 12/12/21 07:44 83 12/12/21 07:35 36.7 C 62 18 106/73 99 Room Air 12/12/21 03:41 36.5 C 73 16 108/72 99 Room Air 12/11/21 23:29 36.4 C L 68 18 108/72 99 Room Air Laboratory Results Cardiac Enzymes 12/11/21 12/11/21 12/12/21 Range/Units 09:36 09:36 06:09 AST 57 H (13-39) U/L Troponin I High Sens 6524.0 H* D 2928.8 H* D (0-20) pg/ml CBC 12/12/21 Range/Units 06:09 WBC 2.18 L (4.8-10.8) K/ul RBC 4.82 (4.63-6.08) M/uL Hgb 12.7 L (14.0-18.0) g/dl Hct 38.8 L (40.1-51.0) % Plt Count 198 (130-400) K/uL Comprehensive Metabolic Panel 12/11/21 12/12/21 Range/Units 09:36 06:09 Sodium 134 L 135 L (136-145) mmol/L Potassium 3.5 3.9 (3.5-5.1) mmol/L Chloride 103 103 (98-107) mmol/L Carbon Dioxide 24 25 (21-32) mmol/L BUN 11 10 (6-23) mg/dl Creatinine 0.95 0.87 (0.6-1.4) mg/dl Glucose 88 81 (70-99(Fasting)) mg/dl Calcium 8.4 L 8.5 (8.5-10.1) mg/dl AST 57 H (13-39) U/L ALT 19 (7-52) U/L Alkaline Phosphatase 77 (34-104) U/L Total Protein 7.0 (6.0-8.3) gm/dl Albumin 3.7 (3.4-5.0) gm/dl
--- NOTE | 2021-12-12 13:45 | Discharge Summary ---
Date of Service December 12, 2021 Admission HPI Per Admitting Provider Patient is a 31-year-old male with no significant past medical history presents to the ED with complaint of dizziness for 5 days and chest pain for the last 2 days. Since last , patient has been noticing multiple episode of dizziness which occurs when he stands up from a sitting position. Dizziness is not associated with any loss of consciousness, palpitation, weakness/numbness of any body part, tinnitus or vertigo. Patient also has chest pain substernal since yesterday afternoon. Patient was helping his friend move furniture when he started to notice pain in the chest. The onset of the pain in the chest was associated with pain in his back and back of his head. The pain is more pronounced when he takes a deep breath. He denies any palpitation or shortness of breath with the chest pain. He denies headache, visual disturbances, abdominal pain or urinary symptoms. He does not have a history of recent viral infection or recent travel. Patient reports that the chest pain and dizziness have improved after receiving IV fluids and IV ibuprofen/Tylenol in the ED Patient reports history of recent dental work in November; was given prescription of doxycycline for 2 weeks. He had COVID infection in May 2021; recovered at home; did not require any hospitalization. He is unvaccinated for COVID. He denies any history of smoking, alcohol use any use of any other illicit drugs. He works at [employer]. Principal Diagnosis myocarditis/pericarditis Discharge Exam CONSTITUTIONAL: WNWD, vitals as above, generally well-appearing, NAD EYES: normal conjunctivae, no scleral icterus ENT: external ear and nose normal, MMM NECK: trachea midline RESPIRATORY: clear to auscultation bilaterally, no crackles, rales or wheezes, normal respiratory effort CARDIOVASCULAR: regular rate and rhythm, S1 and 2 heard without murmurs, gallops or rubs, no JVD, no peripheral edema, CHEST: inspection of chest was normal GASTROINTESTINAL: soft, nontender, ND, no guarding MUSCULOSKELETAL: strength 5/5 throughout, head is normocephalic and atraumatic, neck supple, normal palpation of chest wall without tenderness SKIN: warm and dry, no rashes NEUROLOGIC: CN 2-12 grossly intact, no sensory deficit, normal cognition, normal speech, no tremor PSYCHIATRIC: alert cooperative and oriented to person, place and time. Euthymic mood, makes good eye contact, language grossly intact, recent and remote memory grossly intact. Discharge Data Allergies Allergy/AdvReac Type Severity Reaction Status Date / Time No Known Allergies Allergy Verified 12/10/21 13:30 Consultations 12/10/21 12:30 ED Decision to Admit Stat 12/10/21 13:36 Consult Cardiology Stat Hospital Course (1) Myocarditis: (2) Pericardial effusion: (3) Hyponatremia: (4) Hypokalemia: Plan The patient is a 31-year-old man who arrived at the ER after evaluation of flu/COVID-like illness over the last week. He had worsening dizziness and lightheadedness with initial EKG revealing Q waves but no specific ST elevation. He was febrile and tachycardic on arrival and received IV fluids Tylenol and Mo dion. Initial chest x-ray was unremarkable. COVID testing was negative. His labs returned with a significantly elevated troponin at 4000 and hyponatremia. Cardiology was consulted emergently and he had an emergent echocardiogram done. Following this the tire recapper felt it was reasonable to bring him in and monitor for further management needs. A Lyme was negative, CRP/ESR were both elevated and trended down at time of discharge. CK was elevated. Initial lactate and procalcitonin were unremarkable. This was not thought to be secondary to bacterial sepsis. Viral etiology was favored and no antibiotics were given. Symptoms and EKG were concerning for pericarditis/myocarditis. Symptoms improved following administration of ibuprofen, acetaminophen and IV fluids. There was no evidence of overt heart failure on physical exam chest x- ray or by history. There were no arrhythmias observed on telemetry. Serial cardiac biomarkers trended down during his stay. He had fever on the morning of 12/11 and his stay was extended an additional day for monitoring. A repeat echocardiogram performed on 12/12 revealed trace amount of pericardial fluid adjacent to the right ventricle, anterolateral wall and anterior wall with an ejection fraction of 55 to 60%. The right ventricle was normal in size and function. Overall he had a probable recent viral illness with suspected associated myopericarditis given his pleuritic/positional chest pain, ST segment elevation in 1 and aVL (not diffuse), small pericardial effusion, elevated high- sensitivity troponin I, preserved ventricular systolic function. Cardiology recommendations include tapering course of ibuprofen over the next 3 weeks, colchicine 0.6 mg twice daily from 3 months and pantoprazole 20 mg daily for GI prophylaxis while on ibuprofen. An outpatient cardiac MRI will be set up post discharge. Activity restrictions including avoidance of sports or intense exercises also advised at discharge. Notably he was also seen to have a sodium of 129 on admission with hyponatremia resolving after IV fluids. At time of discharge she was hemodynamically stable and afebrile and oxygenating well on room air. He was mentating at his baseline and ambulating at his baseline. He was discharged in stable condition with close primary care follow-up recommended. He verbalized understanding of all post discharge instructions. Total Time Total Time Spent Total Time Spent (In Minutes): 60 Discharge Plan Discharge Items Patient Disposition: Home - Self-Care Reason For Visit: MYOCARDITIS Discharge Diagnosis: myocarditis viral illness leukopenia Condition on Discharge: Good Activity: Per Instructions section Exercise/Sports: Wait until after follow-up appointment Non-emergency contact: Primary Care Provider and Mobile Home Installer Call non-emergency contact if: you have any medication questions, your symptoms worsen, your pain is not controlled, your pain is worsening, your pain is unusual for you, your pain is concerning for you and you have a fever Follow-up/Referrals: [facility] Cardiology [Other] (The Cardiology office will call you for an appointment. [id number] , [place] [id number] ) Landry Mooer MD [Outside Practitioners] - 12/18/21 11:20 am (Date & Time 12/18/2021 11:20 AM Provider Landry Moore MD [facility] ) Diet: Regular Addtl Attending Provider Instructions: Please take all medications as instructed on discharge list below. You are being placed on ibuprofen, colchicine, and pantoprazole as new medications. Please review these medications with your primary care physician on follow-up. Please avoid heavy alcohol consumption during this time and physical activity should be restricted to reduce the work of heart especially in this acute period. It is recommended that you follow-up with cardiology at the [facility] location. They will contact you with a date and time for this appointment. They will also be scheduling a cardiac MRI with you within the coming days. Please follow-up with your primary care doctor at the date and time above to ensure you are still doing well since hospital discharge. Follow-up at this time will include consideration of a CBC given your decreasing white blood cell count at time of discharge likely related to your viral illness. Additionally, inflammatory markers may be considered by your provider. This will be an important opportunity to obtain refills as needed for medications and ensure you are tolerating the new medications without difficulty. It was a pleasure taking care of you! Please call if you have any questions or problems. You can reach a [facility] hospitalist on duty at [facility] 24 hours a day by calling [phone]. Take care of yourself. Padmini Garcia, [facility] Center[facility] Pending Studies at Discharge: No Stand-Alone Forms: My [facility], Work/School Release Medications and DC Order Prescriptions: New ibuprofen 600 mg Tablet 600 mg PO Q8H Qty: 60 0RF colchicine [Colcrys] 0.6 mg Tablet 0.6 mg PO BID Qty: 60 0RF omeprazole 20 mg capsule,delayed release(DR/EC) 20 mg PO DAILY Qty: 30 0RF Discharge Orders: Discharge Order (Routine); Ordered 12/12/21 Ordered By: Padmini Garcia Admission Data Admit Date/Time: 12/10/21 12:46 Attending Provider: Padmini Garcia Admit Provider: Terrell Oropeza Primary Care Provider: PCP,NO Other Providers: Joel King ; Gualberto Cage ; Terrell Oropeza Other Interventions: Discharge Summary Assessment (RN) Last Done: 12/12/21 14:21
--- NOTE | 2021-12-12 16:48 | Communication Note ---
Date of Service: December 12, 2021 I contacted the pharmacy at [facility] ([place]) regarding the need for prior auth on the pantoprazole. We tried prescriptions for esomeprazole and omep razole all three of which were not covered by his plan. The generic omeprazole was $15 for 30 days OTC, however. The pharmacist said she would reach out to him to give him that option. Padmini Garcia DO [facility]
--- NOTE | 2021-12-14 05:25 | Electrocardiogram Report ---
Test Reason : Blood Pressure : / mmHG Vent. Rate : 078 BPM Atrial Rate : 078 BPM P-R Int : 150 ms QRS Dur : 086 ms QT Int : 430 ms P-R-T Axes : 052 -08 -01 degrees QTc Int : 490 ms Normal sinus rhythm Nonspecific T wave abnormality Prolonged QT Abnormal ECG When compared with ECG of 11-DEC-2021 09:27, QT has lengthened Confirmed by Aram Sparks ([id number]) on 12/14/2021 5:25:16 AM Referred By: REFERRED SELF Confirmed By:Aram Sparks
[2021-12-15 16:06] LABS: CK Total 1107 U/L (44-196); CK-MB 0 % (<5); CK-MM 100 % (95-100)
== END 2021-12-12 16:57 | disposition home or self-care (01) | DRG 315 ==
LOC: ED 08:12 → SUATTDRO 12:46 → 2S 12:46